=== PATIENT | male | born 1965 | race Caucasian/White ===

== ENCOUNTER 2016-12-23 12:34 | Emergency (ER) | payer OTHER ==
[~2016-12-23] VITALS: Wt 72.0 kg
[~2016-12-23 12:34] MED LIST: BENZ100C70 PO; EMTR1TAB11 PO; FLUT9.9S NASAL; LOPI1TAB PO; PROM6.25 PO; PSEU30TA38 PO
[2016-12-23] MEDS ORDERED: BENZ100C70 PO (14:20)
[2016-12-23] MEDS ORDERED: FLUT16SP17 NASAL (14:21)
[2016-12-23] MEDS ORDERED: IBUP-1542 PO (14:21)
--- NOTE | 2016-12-23 15:10 | ERD ---
ER Documentation Chief Complaint Date/Time DATE: 12/23/16 TIME: 15:08 Chief Complaint COUGH WITH PHLEGM, ONSET 3 DAYS, NO FEVER HPI Patient is a 51-year-old male who presents to the ED with productive cough, runny nose, sore throat for 3 days. Denies fever or chills. Denies sore throat. Denies chest pain, shortness of breath or difficulty breathing. Denies headache, chills, dizziness denies leg pain or swelling. Denies recent travel or recent surgeries. Has not taken any medications for his symptoms. No other complaints. ROS All systems reviewed and are negative except as per history of present illness. Medications Home Meds Active Scripts Ibuprofen* (Motrin*) 600 Mg Tab, 600 MG PO Q6, #30 TAB Prov:CATIE RICARDO PA-C 12/23/16 Fluticasone Propionate* (Fluticasone Propionate* Nasal) 50 Mcg/[place] - 16 Gm [place].susp, 1 SPRAY NASAL BID, #1 BOTTLE TO EACH NOSTRIL Prov:CATIE RICARDO PA-C 12/23/16 Benzonatate* (Tessalon Perle*) 100 Mg Capsule, 100 MG PO Q8H Y for COUGH for 10 Days, CAP Prov:CATIE RICARDO PA-C 12/23/16 Promethazine w/Codeine* (Phenergan w/Codeine* Syrup) 5 Ml Syrup, 5 ML PO Q4H Y for COUGH, #100 ML Prov:SENAIT HEALY PA-C 02/23/16 Benzonatate* (Tessalon Perle*) 100 Mg Capsule, 100 MG PO Q8H Y for COUGH, #30 CAP Prov:SENAIT HEALY PA-C 02/23/16 Fluticasone Propionate (Flonase Allergy Relief) 9.9 Ml [place].susp, 1 SPRAY NASAL BID, #1 BOTTLE TO EACH NOSTRIL Prov:SENAIT HEALY PA-C 02/23/16 Pseudoephedrine Hcl* (Pseudoephedrine Hcl*) 30 Mg Tablet, 30 MG PO Q6 Y for CONGESTION, #30 TAB Prov:SENAIT HEALY PA-C 02/23/16 Reported Medications Lopinavir-Ritonavir* (Kaletra*) 50-200 Mg Tablet, 4 TAB PO DAILY, TAB 10/10/14 Emtricitabine-Tenofovir* (Truvada*) 200-300 Mg Tablet, 1 TAB PO DAILY, TAB 10/10/14 Allergies Allergies: Coded Allergies: No Known Allergy (Unverified , 10/10/14) PMhx/Soc History of Surgery: No Anesthesia Reaction: No Hx Neurological Disorder: No Hx Respiratory Disorders: No Hx Cardiac Disorders: No Hx Psychiatric Problems: No Hx Miscellaneous Medical Probl: No Hx Alcohol Use: No Hx Substance Use: No Hx Tobacco Use: No Smoking Status: Never smoker Physical Exam Vitals Vital Signs Date Time Temp Pulse Resp B/P Pulse Ox O2 Delivery O2 Flow Rate FiO2 12/23/16 12:37 97.9 73 18 153/98 98 Physical Exam GENERAL: Well-developed, well-nourished male. Appears in no acute distress. HEAD: Normocephalic, atraumatic. EYES: Pupils are equally reactive bilaterally. EOMs grossly intact. No conjunctival erythema. ENT: Moist mucous membranes. No uvula deviation. No kissing tonsils. No exudates. NECK: Supple. No lymphadenopathy or thyromegaly. No meningismus. negative kernig. negative brudinski. LUNG: Clear to auscultation bilaterally. No rhonchi, wheezing, rales or coarse breath sounds. HEART: Regular rate and rhythm. No murmurs, rubs or gallops. SKIN: Normal color. Warm and dry. No rashes or lesions. Capillary refill < 2 seconds Procedures/MDM ER COURSE: I kept the patient and/or family informed of laboratory and diagnostic imaging results throughout the emergency room course. MEDICAL DECISION MAKING: This is a 51-year-old male who presents with cough, runny nose and sore throat.. Vital signs were reviewed. Patient is afebrile. Patient is not hypoxic. Patient is not toxic or ill-appearing. Patient likely has URI of viral etiology. His lung examination is within normal limits and he does not show signs of respiratory distress and has an oxygen saturation of 98. I do not think a chest x-ray is warranted at this time. Low suspicion for pneumonia , PE, pneumothorax, ACS, epiglottitis, obstruction, TB, pertussis, meningitis, sepsis. DISCHARGE: At this time, patient is stable for discharge and outpatient management with no new complaints during the ER course. Patient was sent home with Tessalon Perles , fluticasone and Motrin. Patient will be discharged home with instructions to recheck for new or worsening symptoms such as fever, nausea, weakness, LOC and to follow up with primary care in the next 1-2 days. Patient was advised to return to the ER for any new or worsening symptoms. Plan was discussed and patient and/or family understands and agrees. Home instructions were given. Departure Diagnosis: Primary Impression: Upper respiratory infection URI type: unspecified URI Qualified Code: J06.9 - Upper respiratory tract infection, unspecified type Condition: Stable Patient Instructions: Preventing Common Respiratory Infections Referrals: DOCTOR,NOT ON STAFF (PCP) Additional Instructions: Llame al doctor MAANA y fabian emily BELGICA PARA DENTRO DE 1-2 OLIVERA.Dgale a la secretaria que nosotros le instruimos hacer esta belgica.Avise o llame si [place] condicin se empeora antes de la belgica. Regresa aqui si peor o no mejor. CATIE RICARDO PA-C Dec 23, 2016 15:10
== END 2016-12-23 14:42 | disposition home or self-care (01) ==
LOC: FTE 12:34
DX: J06.9 Acute upper respiratory infection, unspecified (principal)
CPT/HCPCS: 99283

== ENCOUNTER 2018-01-10 13:31 | Emergency (ER) | END 2018-01-10 17:36 | disposition home or self-care (01) ==

== ENCOUNTER 2019-01-02 14:31 | Emergency (ER) | payer OTHER ==
[~2019-01-02] VITALS: Ht 165.1 cm; Wt 78.4 kg
[~2019-01-02 14:31] MED LIST changes: +BENZ-6 PO; -BENZ100C70 PO; +DOXY100T2 PO; +ELEC100080 PO; +FLUT16SP17 NASAL; +IBUP-1542 PO; +LOPE2CAP PO; +ONDA4TAB8 PO
[2019-01-02 14:40] VITALS: BP 153/98; PULSE 89; RESP 18; Ht 165.1 cm; Wt 78.4 kg
[2019-01-02] MEDS ORDERED: D-ME118S24 PO (15:56)
[2019-01-02] MEDS ORDERED: AMOX1TAB10 PO (15:56)
--- NOTE | 2019-01-02 15:57 | ERD ---
ER Documentation Chief Complaint Chief Complaint cough/congestion x 5 days; sinus pain ROS All systems reviewed and are negative except as per history of present illness. Medications Home Meds Active Scripts D-Methorphan Hb/P-Epd HCl/Bpm (Bhwebkwhbj-Xppaehrdfyp-Dy Syr) 118 Ml Syrup, 5 ML PO Q4 PRN for COUGH for 7 Days, #1 BOTTLE Prov:ANGELIA WALTERS DO 01/02/19 Amoxicillin/Potassium Clav (Amox-Clav 875-125 mg Tablet) 875-125 mg Tab, 1 TAB PO BID for sinusitis for 7 Days, #14 TAB Prov:ANGELIA WALTERS DO 01/02/19 Electrolyte,Oral (Pedialyte) 1,000 Ml Solution, 100 ML PO Q6 PRN for DIARRHEA for 3 Days, ML Prov:LYUDMILA DEAL 01/10/18 Doxycycline* (Vibramycin*) 100 Mg Tab, 100 MG PO BID for 7 Days, TAB Prov:LYUDMILA DEAL 01/10/18 Loperamide Hcl* (Imodium*) 2 Mg Capsule, 2 MG PO .AFTER EA LOOSE BM PRN for DIARRHEA, #10 TAB Prov:LYUDMILA DEAL 01/10/18 Ondansetron Hcl* (Zofran*) 4 Mg Tablet, 4 MG PO Q6H for NAUSEA AND/OR VOMITING, #30 TAB Prov:LYUDMILA DEAL 18 Ibuprofen* (Motrin*) 600 Mg Tab, 600 MG PO Q6, #30 TAB Prov:CATIE RICARDO PA-C 12/23/16 Fluticasone Propionate* (Fluticasone Propionate* Nasal) 50 Mcg/[place] - 16 Gm [place].susp, 1 SPRAY NASAL BID, #1 BOTTLE TO EACH NOSTRIL Prov:CATIE RICARDO PA-C 12/23/16 Benzonatate* (Tessalon Perle*) 100 Mg Capsule, 100 MG PO Q8H PRN for COUGH for 10 Days, CAP Prov:CATIE RICARDO PA-C 12/23/16 Promethazine w/Codeine* (Phenergan w/Codeine* Syrup) 5 Ml Syrup, 5 ML PO Q4H PRN for COUGH, #100 ML Prov:SENAIT HEALY PA-C 02/23/16 Benzonatate* (Tessalon Perle*) 100 Mg Capsule, 100 MG PO Q8H PRN for COUGH, #30 CAP Prov:SENAIT HEALY PA-C 02/23/16 Fluticasone Propionate (Flonase Allergy Relief) 9.9 Ml [place].susp, 1 SPRAY NASAL BID, #1 BOTTLE TO EACH NOSTRIL Prov:SENAIT HEALY PA-C 02/23/16 Pseudoephedrine Hcl* (Pseudoephedrine Hcl*) 30 Mg Tablet, 30 MG PO Q6 PRN for CONGESTION, #30 TAB Prov:SENAIT HEALY PA-C 02/23/16 Reported Medications Lopinavir-Ritonavir* (Kaletra*) 50-200 Mg Tablet, 4 TAB PO DAILY, TAB 10/10/14 Emtricitabine-Tenofovir* (Truvada*) 200-300 Mg Tablet, 1 TAB PO DAILY, TAB 10/10/14 Allergies Allergies: Coded Allergies: No Known Allergy (Unverified , 10/10/14) PMhx/Soc History of Surgery: No Anesthesia Reaction: No Hx Neurological Disorder: No Hx Respiratory Disorders: No Hx Cardiac Disorders: No Hx Psychiatric Problems: No Hx Miscellaneous Medical Probl: No Hx Alcohol Use: No Hx Substance Use: No Hx Tobacco Use: No Physical Exam Vitals Vital Signs Date Temp Pulse Resp B/P (MAP) Pulse Ox O2 O2 Flow FiO2 Time Delivery Rate 01/02/19 98.2 89 18 153/98 97 14:40 (116) Physical Exam Const: No acute distress Head: Atraumatic Eyes: Normal Conjunctiva ENT: Normal External Ears, Nose and Mouth. Neck: Full range of motion. No meningismus. Resp: Clear to auscultation bilaterally Cardio: Regular rate and rhythm, no murmurs Abd: Soft, non tender, non distended. Normal bowel sounds Skin: No petechiae or rashes Back: No midline or flank tenderness Ext: No cyanosis, or edema Neur: Awake and alert Psych: Normal Mood and Affect Departure Diagnosis: Primary Impression: Sinusitis Sinusitis location: unspecified location Chronicity: unspecified Qualified Codes: J32.9 - Chronic sinusitis, unspecified Condition: Fair Patient Instructions: Sinusitis, Abx Tx Referrals: [facility] YOU HAVE RECEIVED A MEDICAL SCREENING EXAM AND THE RESULTS INDICATE THAT YOU DO NOT HAVE A CONDITION THAT REQUIRES URGENT TREATMENT IN THE EMERGENCY DEPARTMENT. FURTHER EVALUATION AND TREATMENT OF YOUR CONDITION CAN WAIT UNTIL YOU ARE SEEN IN YOUR DOCTORS OFFICE WITHIN THE NEXT 1-2 DAYS. IT IS YOUR RESPONSIBILITY TO MAKE AN APPOINTMENT FOR FOLOW-UP CARE. IF YOU HAVE A PRIMARY DOCTOR --you should call your primary doctor and schedule an appointment IF YOU DO NOT HAVE A PRIMARY DOCTOR YOU CAN CALL OUR PHYSICIAN REFERRAL HOTLINE AT IF YOU CAN NOT AFFORD TO SEE A PHYSICIAN YOU CAN CHOSE FROM THE FOLLOWING [facility] [address] [facility]. [facility] [address] [facility] [facility] [address] [facility] [facility] [address] [facility]. [facility] [address] [facility]. [facility]. [address] Additional Instructions: Llame al doctor MAANA y fabian emily BELGICA PARA DENTRO DE 1-2 OLIVERA.Dgale a la secretaria que nosotros le instruimos hacer esta belgica.Avise o llame si [place] condicin se empeora antes de la belgica. Regresa aqui si peor o no mejor. ANGELIA WALTERS DO Jan 02, 2019 15:57
== END 2019-01-02 16:55 | disposition home or self-care (01) ==
LOC: FTE 14:31
DX: J32.9 Chronic sinusitis, unspecified (principal)
CPT/HCPCS: 99283